=== PATIENT | male | born 1990 | race Two or more races ===

== ENCOUNTER 2016-05-03 02:03 | Emergency (ER) | payer OTHER ==
[~2016-05-03] VITALS: Ht 185.4 cm; Wt 88.0 kg
[2016-05-03 02:15] VITALS: BP 120/76
[2016-05-03] MEDS ORDERED: NKM (02:19)
[2016-05-03] MEDS ORDERED: Tetracaine 0.5% Opth Soln LEFT EYE ONE (02:45)
[2016-05-03] MEDS ORDERED: Fluorescein Strips BOTH EYES ONE (02:45)
[2016-05-03] MEDS ORDERED: Sulfacetamide 10% Opth Btl LEFT EYE STA (03:25)
--- NOTE | 2016-05-03 03:27 | Emergency Room Report ---
History of Present Illness General Chief Complaint: Eye Problems Source: Patient Present Illness HPI L eye pain. Feels like contact still in. Tried to remove, but only part came out. No change in vision. No fevers, URI, runny nose. Pain is 2/10, constant, burning and not radiating. No medical problems. Allergies: Coded Allergies: No Known Allergies (Unverified , 05/03/16) Patient History Past Medical History: see triage record Social History: Reports: smoking Social History Narrative room service Reviewed Nursing Documentation: PMH: Agreed, PSxH: Agreed Nursing Documentation-PMH Past Medical History: No Stated History Review of Systems Constitutional: Denies: fever Eye: Reports: see HPI ENT: Reports: nose congestion, Denies: nose pain Skin: Denies: rash Neurological: Denies: headache Endocrine: Reports: other - dry eyes Physical Exam Vital Signs Date Time Temp Pulse Resp B/P Pulse Ox O2 Delivery O2 Flow Rate FiO2 05/03/16 02:09 97.2 81 16 116/73 97 Room Air General Appearance: well appearing, no apparent distress Head: normocephalic, atraumatic Eyes: left eye Scleral Injection, left eye other - part of contact present lower scleral area laterally, bilateral eye EOMI, bilateral eye PERRL, bilateral eye fluoroscene uptake - contacts as well as L cornea 8 o'clock ENT: hearing grossly normal, normal voice Neck: full range of motion, supple Respiratory: no respiratory distress, speaking full sentences Musculoskeletal: no calf tenderness Neurologic: alert, oriented x3, normal gait, grossly normal Psychiatric: mood/affect normal Skin: no rash Procedures Eye Procedure Eye Procedure : Consent: Verbal Alcaine Drops Administered: Yes Eye FB Removal: removal w/ cotton swab Eye Irrigated w/ Saline (ccs): 5 Cyclogel 2 Drops Administered: left eye Antibiotic Ointment/Drps Admin: left eye Patient Tolerated: Well Complications: None Progress Corneal abrasion L 8 o'clock Medical Decision Making Diagnostic Impression: Primary Impression: Corneal abrasion Qualified Codes: S05.02XA - Injury of conjunctiva and corneal abrasion without foreign body, left eye, initial encounter Additional Impression: Foreign body of sclera of left eye Qualified Codes: T15.82XA - Foreign body in other and multiple parts of external eye, left eye, initial encounter ER Course Patient with eye pain. DDx: corneal abrasion, FB, iritis amongst others. Slit lamp indicated. + corneal abrasion and FB removed. Tolerated well. (Difficulty finding eye antibiotics in ED.) Patient stable for outpatient observation and treatment. Last Vital Signs Date Time Temp Pulse Resp B/P Pulse Ox O2 Delivery O2 Flow Rate FiO2 05/03/16 03:54 98.2 76 17 124/78 100 Room Air Status: improved Disposition: HOME, SELF-CARE Condition: Improved Scripts Sulfacetamide Sodium (BLEPH-10) 5 Ml Drops 2 DROP OP Q6HR, #10 ML Prov: Naveed Vera M.D. 05/03/16 Tramadol Hcl* (ULTRAM*) 50 Mg Tablet 50 MG ORAL Q6H Y for For Pain, #6 TAB 0 Refills Prov: Naveed Vera M.D. 05/03/16 Ibuprofen* (MOTRIN*) 600 Mg Tablet 600 MG ORAL Q6H Y for For Pain, #16 TAB Prov: Naveed Vera M.D. 05/03/16 Referrals: NOT CHOSEN NANNETTE/,REFERRING (PCP) Naveed Vera M.D. May 03, 2016 03:27
[2016-05-03] MEDS ORDERED: Cyclopentolate 1% Opth Sol LEFT EYE ONE (03:30)
[2016-05-03] MEDS ORDERED: Erythromycin Opth Ointment 3.5gm LEFT EYE STA (03:42)
[2016-05-03] MEDS ORDERED: BLEPH-105 ML OP (03:42)
[2016-05-03] MEDS ORDERED: TRAMADOL HCL50 MG ORAL (03:42)
[2016-05-03] MEDS ORDERED: IBUPROFEN600 MG ORAL (03:42)
[2016-05-03] MEDS ORDERED: Ciprofloxacin Opth Soln LEFT EYE ONE (03:45)
[2016-05-03 03:54] VITALS: BP 124/78
[2016-05-03] MEDS ORDERED: Erythromycin Opth Ointment 3.5gm LEFT EYE SCH (21:00)
== END 2016-05-03 03:54 | disposition home or self-care (01) ==
LOC: EMR 02:25
DX: S05.02XA Injury of conjunctiva and corneal abrasion without foreign body, left eye, initial encounter (principal); T15.82XA Foreign body in other and multiple parts of external eye, left eye, initial encounter; F17.200 Nicotine dependence, unspecified, uncomplicated; X58.XXXA Exposure to other specified factors, initial encounter; Y92.9 Unspecified place or not applicable; Y99.8 Other external cause status
CPT/HCPCS: 65205